=== PATIENT | male | born 1965 | race Caucasian/White ===

== ENCOUNTER → 2018-02-06 | Outpatient (REF) ==
[~2018-02-06] MED LIST: IBU600 PO; PER PO; PRO25 PO
== END ==
LOC: AUD 10:00
PROVIDERS: ATTEND Nurse Practitioner Psychiatric/Mental Health
DX: Z01.10 Encounter for examination of ears and hearing without abnormal findings (principal)
CPT/HCPCS: 92552

== ENCOUNTER → 2019-01-29 | Outpatient (REF) | LOC: AUD 10:00 | PROVIDERS: ATTEND Nurse Practitioner Psychiatric/Mental Health | DX: Z01.12 Encounter for hearing conservation and treatment (principal) | CPT/HCPCS: 92552 ==